=== PATIENT | male | born 1955 | race Caucasian/White ===

== ENCOUNTER → 2020-08-05 | Day surgery (SDC) | payer BC ==
--- NOTE | 2020-08-05 11:04 | RAD REPORT ---
EXAM DESCRIPTION: US - Guided FNA Non Breast - 08/05/2020 10:37 am CLINICAL HISTORY: E04.1 COMPARISON: Thyroid Para Parotid Gland dated 07/19/2020 TECHNIQUE: Patient presented for ultrasound-guided FNA of an approximately 4 centimeter solid nodule in the right lobe of the thyroid gland. The ultrasound FNA procedure, risks and alternatives were di scussed with the patient in detail. After answering all questions, oral and written consent were obta ined. Patient had no contraindicated allergy or medication history. Prior imaging demonstrated a large heterogeneous 4 centimeter nodule. That mass was again identified. Anterior right neck was prepped and draped in the usual sterile fashion. Skin and deeper tissues oneal n to the nodule were anesthetized with 1% lidocaine. Under direct sonographic visualization a 25 gaug e needle was advanced into the nodule. Multiple to and fro excursions of the needle tip made within t he nodule. A total of 5 FNA samplings of the mass performed. At the conclusion the procedure there wa s no evidence for hemorrhage within the mass or in the surrounding soft tissues. Hemostasis was obtai eloisa at the skin surface. A sterile bandage placed to the puncture site. Postprocedure care and precaution instructions were given to the patient. All collective material was given to pathology for assessment. IMPRESSION: Successful ultrasound-guided fine-needle aspiration of a 4 centimeter right thyroid nodu le.
== END ==
LOC: FNA 09:44
PROVIDERS: ATTEND Otolaryngology
PROC: 0GBH3ZX Excision of Right Thyroid Gland Lobe, Percutaneous Approach, Diagnostic (ICD-10-PCS; principal; 2020-08-05)
DX: E04.1 Nontoxic single thyroid nodule (principal)
CPT/HCPCS: 88162

== ENCOUNTER 2020-09-09 09:25 | Day surgery (SDC) | payer BC ==
[2020-09-08 12:53] LABS: Albumin 3.5 g/dL (3.4-5.0); Bilirubin Total 0.5 mg/dL (0.2-1.0); Potassium 4.4 mmol/L (3.5-5.1); Protein, Total 7.3 g/dL (6.4-8.2)
[2020-09-08 13:12] LABS: Absolute Lymphocytes (CBC) 2.6 K/uL (0.7-4.9); Basophils % 0.3 % (0-1.3); Lymphocytes % 25.3 % (15.3-44.8); MPV 7.4 fL (7.6-11.3); RBC Red Blood Cell Count 4.77 M/uL (4.33-5.43)
[2020-09-09] MEDS ORDERED: Ringers Lactate 1,000 ML IV ONE (09:57)
[2020-09-09] MEDS ORDERED: MIDAZOLAM HCL 2 MG/2 ML INJ ONE (10:03)
[2020-09-09] MEDS ORDERED: FENTANYL CITR 250 MCG/5 ML ONE (10:03)
[2020-09-09] MEDS ORDERED: ROCURONIUM 50 MG/5 ML VIAL IV ONE (10:03)
[2020-09-09] MEDS ORDERED: LIDOCAINE 2% MPF 5 ML VIAL ONE (10:03)
[2020-09-09] MEDS ORDERED: propofoL 200 MG/20 ML VIAL IV ONE (10:03)
[2020-09-09] MEDS ORDERED: dexAMETHasone 10 MG/ML VIAL ONE (10:03)
[2020-09-09] MEDS ORDERED: LIDOCAINE 1% W/EPI 1:100,000 MDV 20 ML VIAL ONE (11:34)
[2020-09-09] MEDS ORDERED: KETOROLAC 30 MG/ML INJ ONE (13:00)
[2020-09-09] MEDS ORDERED: EPHEDRINE SULF 50 MG/ML VIAL ONE (13:09)
--- NOTE | 2020-09-09 14:19 | P.BOP ---
Preoperative diagnosis: right thyroid neoplasm, uncertain behavior Postoperative diagnosis: same, favor follicular neoplasm Primary procedure: right hemithyroidectomy Survey Research Professor: Mary Tang Estimated blood loss: 100ml Specimen: right thyroid, frozen section Findings: soft nodule Anesthesia: General Complications: None Drain(s): YOAV drain Fluids & blood products: crystalloid 900ml Transferred to: Recovery Room Condition: Good
[2020-09-09 14:48] VITALS: O2SAT 95
[2020-09-09] MEDS ORDERED: ONDANSETRON 4 MG/2 ML VIAL ONE (14:53)
[2020-09-09 15:26] VITALS: TEMP 97.1
[2020-09-09 16:07] VITALS: BP 148/80
--- NOTE | 2020-09-10 01:53 | OP ---
Date of Procedure: 09/09/2020 Surgeon: Cristel Yoon MD Specialty Sales Consultant: Mary Tang. Preoperative Diagnosis: Right thyroid neoplasm of uncertain behavior. Postoperative Diagnosis: Right thyroid neoplasm of uncertain behavior, favor benign follicular lesion. Indication For Procedure: Mr. Shaikh is a 64-year-old, who presented with an incidental 4 cm right thyroid nodule on imaging of the chest. His ultrasound confirmed unilateral nodule and the patient's ultrasound-guided fine-needle aspiration biopsy was nondiagnostic. The patient also had a history of progressive dysphagia, which had been previously evaluated and inadequately treated with esophageal dilation. The risks, benefits, and alternatives to surgery were discussed with the patient. I recommended right hemithyroidectomy with frozen section and immediate completion thyroidectomy if the malignant process was noted. I discussed with the patient prior to surgery that thyroid frozen section can be limited in regard to diagnosis of follicular lesions and that change in diagnosis between the frozen section and permanent section was possible. The patient and his expressed understanding. Description Of Procedure: The patient was brought to the operating room. He was placed under general anesthesia via oral endotracheal tube. A shoulder roll was placed and the neck was extended. The planned incision site was injected with 4.5 mL of 1% lidocaine with epinephrine. The patient was noted to have a very short neck and the thyroid was difficult to palpate despite surgical positioning. A low collar incision was made through the skin and subcutaneous tissues. The platysma muscle was identified, and the inferior and superior subplatysmal flaps were elevated using Bovie electrocautery. The strap muscles were identified in the midline and divided using the LigaSure. The anterior aspect of the thyroid and thyroid capsule was then identified, and blunt dissection was carried out along the capsule using finger dissection and LigaSure to divide the soft tissue component. The inferior pole elevated easily from surrounding tissues. The thyroid was noted to extend deep into the neck and extended significantly superiorly. Large vessels on the surface of the thyroid were bleeding, but controlled with simple direct pressure and partially controlled with cautery. The superior pole was mobilized by division of soft tissue attachments including the vascular pedicle. Due to the superior extents, the very tip of the gland was difficult to dissect and small portion of thyroid tissue was ligated, to be addressed later if there was concern for thyroid malignancy, requiring total surgical thyroidectomy. The thyroid was then rolled medially and the deep soft tissue attachments were divided using the LigaSure. The isthmus was divided using the LigaSure and the specimen was rotated and divided from the tracheal wall. The specimen after removal was carefully examined and was soft with no obvious evidence of soft tissue invasion noted during dissection. There were no visible parathyroids on the excised specimen. The specimen was then sent to Pathology for frozen section analysis. The pathologist reported that the lesion was well-circumscribed, soft to palpation, did not appear to abut the capsule of the thyroid grossly and microscopically had abundant and cellular follicular cells with scant colloid, but only minimal areas of cellular atypia. Initial impression was for a follicular lesion without significant findings concerning for malignant process. The final diagnosis will be deferred to permanent pathology. The decision was made to forego completion thyroidectomy due to the nature of the intraoperative findings. The surgical bed was thoroughly irrigated with saline and there was no evidence of tracheal injury or bleeding during Valsalva. After suctioning, additional inspection revealed the surgical bed to be hemostatic. A 10-Algerian round YOAV drain was placed into the surgical bed and withdrawn through the right neck. The strap muscles were closed with a single Vicryl suture. The deep tissues of the platysma and subcutaneous fat were closed using 3-0 Vicryl. The skin was then closed with a 4-0 Monocryl subcuticular suture and Dermabond was applied to the incision. The patient was then returned to care of anesthesia for awakening and extubation in the operating room, which proceeded without difficulty. The patient was transferred to the recovery room in stable condition and will be discharged home later today and follow up with Dr. Yoon's office on Saturday for removal of the YOAV drain. SUSI/JEMIMA Voice ID: [id number] Report ID: [id number] [id number]
--- NOTE | 2020-09-10 20:06 | EKG ---
Test Date: 2020-09-08 Test Time: 12:01:25 Marine Technician: MADAI MEASUREMENT RESULTS: Intervals: Rate: 78 NC: 142 QRSD: 88 QT: 390 QTc: 444 [place]: P: 79 NC: 142 QRS: 59 T: 49 INTERPRETIVE STATEMENTS: Normal sinus rhythm Normal ECG No previous ECG available for comparison Electronically Signed On 09-10-20 20:02:58 FIELD MECHANIC by Delfino Garibay
== END 2020-09-09 16:00 | disposition home health service (06) ==
LOC: OR 09:25
PROVIDERS: ATTEND Otolaryngology
PROC: 0GBH0ZZ Excision of Right Thyroid Gland Lobe, Open Approach (ICD-10-PCS; principal; 2020-09-09 11:30)
DX: E04.1 Nontoxic single thyroid nodule (principal); Z20.828 Contact with and (suspected) exposure to other viral communicable diseases; Z87.891 Personal history of nicotine dependence; R06.83 Snoring; J44.9 Chronic obstructive pulmonary disease, unspecified; I10 Essential (primary) hypertension; K21.9 Gastro-esophageal reflux disease without esophagitis; Z85.828 Personal history of other malignant neoplasm of skin
CPT/HCPCS: 93005; 85025; 36415; 88331; 88332 ×2; 88307; 83970; 80053; 82306; 60210; U0002; J2704; J3010; J1100; J7120; J2405; 88305; 88333; J2250

== ENCOUNTER 2024-06-30 14:08 | Observation (INO) | payer OTHER ==
[2024-06-30] MEDS ORDERED: HYDROMORPHONE HCL 1 MG/ML INJ IV PRN (15:14)
[2024-06-30] MEDS ORDERED: POLYETHYL GLY 3350 17 GM/DOSE PO PRN (15:15)
[2024-06-30] MEDS ORDERED: ONDANSETRON 4 MG/2 ML VIAL IV PRN (15:16)
[2024-06-30] MEDS ORDERED: LOPERAMIDE HCL 2 MG CAPSULE PO PRN (15:17)
[2024-06-30] MEDS ORDERED: ACETAMINOPHEN 325 MG TABLET PO PRN (15:17)
[2024-06-30 15:37] LABS: Absolute Basophils 0.1 K/uL (0-0.5); Absolute Eosinophils 0.3 K/uL (0-0.5); Absolute Lymphocytes (CBC) 2.1 K/uL (0.7-4.9); Absolute Neutrophil 6.8 K/uL (1.8-8.0); Basophils % 0.5 % (0-1.3); Eosinophils % 3.1 % (0-4.4); Hematocrit 43.3 % (39.6-49.0); Hemoglobin 14.7 g/dL (13.6-17.9); Lymphocytes % 20.3 % (15.3-44.8); MCH 29.8 pg (27.0-35.0); MCV 87.6 fL (80-100); MPV 7.2 fL (7.6-11.3); Monocytes % 9.4 % (3.3-12.3); Neutrophils % 66.7 % (41.7-73.7); Platelets 289 thou/uL (152-406); RBC Red Blood Cell Count 4.94 M/uL (4.33-5.43); Red Cell Distribution Width 14.2 % (12.1-15.2)
[2024-06-30 15:41] LABS: PT Prothrombin Time 11.1 SECONDS (9.4-12.5); PTT, Activated Partial Thromb 32.9 SECONDS (24.3-36.9); Protime INR 0.99
[2024-06-30 16:35] LABS: ALT/SGPT 22 U/L (16-61); AST/SGOT 11 U/L (15-37); Albumin 3.3 g/dL (3.4-5.0); Albumin/Globulin Ratio 0.9 (1.1-1.8); Alkaline Phosphatase 81 U/L (45-117); Bilirubin Total 0.5 mg/dL (0.2-1.0); Globulin 3.6 g/dL (2.3-3.5); Magnesium 2.1 mg/dL (1.6-2.4); Phosphorus 3.5 mg/dL (2.5-4.9); Protein, Total 6.9 g/dL (6.4-8.2)
[2024-06-30 16:37] LABS: Bilirubin Direct < 0.2 mg/dL (0-0.2); Bilirubin Indirect, Calculated 0.3 mg/dL (0.2-0.8)
--- NOTE | 2024-06-30 16:59 | RAD REPORT ---
EXAMINATION: CT ABDOMEN AND PELVIS WITHOUT CONTRAST CLINICAL INDICATION: Male, 68 years old. abdominal pain [facility] MAIN abdominal pain TECHNIQUE: CT abdomen and pelvis was performed, without IV contrast, as per department protocol. Axia l, sagittal and coronal reconstructions were obtained. One or more of the following dose reduction techniques were used: Automated exposure control, adjustment of the mA and kV according to the patien t size, and iterative reconstruction. Unless otherwise specified, incidental findings do not require dedicated imaging follow-up. COMPARISON: No prior exam. FINDINGS: The lack of intravenous contrast limits the sensitivity of this exam for evaluation of solid visceral organs, vascular structures, and retroperitoneum. LOWER CHEST: The visualized lung bases are clear. LIVER: Normal in size and contour. No focal lesion. BILIARY SYSTEM: No suspicious abnormalities. SPLEEN: Normal size. No focal lesion. PANCREAS: No mass, ductal dilation, or estefani-pancreatic fluid. ADRENALS: Normal; no mass. KIDNEYS AND URETERS: Normal size and contour. No hydronephrosis. URINARY BLADDER: Normal contour. GASTROINTESTINAL TRACT: No evidence of bowel obstruction, significant free fluid, free air or abscess . Mild scattered diverticulosis throughout the colon. APPENDIX: Normal appendix. LYMPH NODES: No lymphadenopathy. MUSCULOSKELETAL: No acute or suspicious osseous abnormality. ADDITIONAL FINDINGS: Small fat-containing umbilical hernia, with pronounced fat stranding within the hernia content. The hernia measures 1.2 cm in diameter at the neck. IMPRESSION: Small fat-containing umbilical hernia, likely inflamed. No other acute intra-abdominal process. Mild colonic diverticulosis.
[2024-06-30] MEDS: ENOXAPARIN 40 MG/0.4 ML SQ SCH (17:46)
[2024-06-30] MEDS: NACHLORIDE 0.45% 1,000 ML IV SCH (17:47)
[2024-06-30] MEDS: CEFOXITIN 1 GM in NA CHLORIDE 0.9% 50 ML IVPB SCH (17:47)
--- NOTE | 2024-06-30 17:59 | RAD REPORT ---
EXAMINATION: ONE VIEW CHEST XR CLINICAL INDICATION: Male, 68 years old. [facility] MAIN new admit, HERNIA TECHNIQUE: Frontal chest projection is submitted. Examination is limited by patient positioning and t echnique. COMPARISON: 01/16/2023 FINDINGS: Lordotic positioning somewhat limits evaluation. The lungs are well inflated and clear apart from sta ble left basilar atelectasis. No pneumothorax or sizable effusion. The heart is normal in size. IMPRESSION: No acute intrathoracic abnormalities.
[2024-06-30] MEDS ORDERED: DIPHENHYDRAMINE 25 MG TAB/CAP PO PRN (21:00)
[2024-07-01 03:12] LABS: Specific Gravity 1.007 (1.005-1.030); Urine Bilirubin NEGATIVE (Negative); Urine Blood Negative (Negative); Urine Clarity Clear (Clear); Urine Color Colorless (Yellow); Urine Glucose NEGATIVE (Negative); Urine Ketones NEGATIVE (Negative); Urine Microscopic Reflex YN NO UMIC; Urine Nitrite NEGATIVE (Negative); Urine Protein NEGATIVE (Negative); Urine Urobilinogen Normal (Normal); Urine pH 6.5 (5.0-7.0)
[2024-07-01 06:00] LABS: Absolute Basophils 0.1 K/uL (0-0.5); Absolute Eosinophils 0.5 K/uL (0-0.5); Absolute Neutrophil 4.8 K/uL (1.8-8.0); Basophils % 0.6 % (0-1.3); Eosinophils % 5.7 % (0-4.4); Hematocrit 40.5 % (39.6-49.0); Hemoglobin 13.6 g/dL (13.6-17.9); Lymphocytes % 24.3 % (15.3-44.8); MCH 29.6 pg (27.0-35.0); MCHC 33.6 g/dL (32.0-36.0); MCV 88.2 fL (80-100); MPV 7.4 fL (7.6-11.3); Monocytes % 11.6 % (3.3-12.3); Neutrophils % 57.8 % (41.7-73.7); Nucleated Red Blood Cells % 0.1 % (0-0); Platelets 295 thou/uL (152-406); RBC Red Blood Cell Count 4.59 M/uL (4.33-5.43); Red Cell Distribution Width 14.5 % (12.1-15.2)
[2024-07-01 06:27] LABS: Anion Gap 7.4 mEq/L (5.0-15.0); Magnesium 2.3 mg/dL (1.6-2.4); Potassium 4.4 mEq/L (3.5-5.1)
[2024-07-01] MEDS: VILANTER IH SCH (08:27)
[2024-07-01] MEDS: UMECLIDIN IH SCH (08:27)
[2024-07-01] MEDS: FLUTICASONE IH SCH (08:27)
[2024-07-01] MEDS ORDERED: dexAMETHasone 10 MG/ML VIAL ONE (10:59)
[2024-07-01] MEDS ORDERED: FENTANYL CITR 100 MCG/2 ML ONE (10:59)
[2024-07-01] MEDS ORDERED: KETOROLAC 30 MG/ML INJ ONE (10:59)
[2024-07-01] MEDS ORDERED: ONDANSETRON 4 MG/2 ML VIAL ONE ×2 (10:59→12:41)
[2024-07-01] MEDS ORDERED: ROCURONIUM 50 MG/5 ML VIAL IV ONE (10:59)
[2024-07-01] MEDS ORDERED: propofoL 200 MG/20 ML VIAL IV ONE (10:59)
[2024-07-01] MEDS ORDERED: MIDAZOLAM HCL 2 MG/2 ML INJ ONE (10:59)
[2024-07-01] MEDS ORDERED: LIDOCAINE 2% MPF 5 ML VIAL ONE (10:59)
[2024-07-01] MEDS ORDERED: BUPIVACAINE 0.5% PF 10 ML VIAL ONE (11:08)
[2024-07-01] MEDS ORDERED: Ringers Lactate 1,000 ML IV ONE (11:24)
[2024-07-01] MEDS ORDERED: SUGAMMADEX SODIUM 200 MG/2 ML VIAL IV ONE (11:41)
--- NOTE | 2024-07-01 12:03 | P.BOP ---
Preoperative diagnosis: incarcerated umbilical hernia Postoperative diagnosis: same Primary procedure: Open repair of incarcerated umbilical hernia Estimated blood loss: <10cc Specimen: sac and content Findings: strangulated omentum Anesthesia: General Complications: None Transferred to: Recovery Room Condition: Good
--- NOTE | 2024-07-01 12:08 | P.DS ---
Admission Date: 06/30/24 Discharge Date: 07/01/24 Disposition: ROUTINE DISCHARGE Discharge Condition: GOOD Brief History of Present Illness: INCARCERATED UMB HERNIA. PATIENT DID WELL WITH SURGERY. DR. Joselito HELM CALLED AND SAID HE WAS STABLE TO GO HOME. I AM OKAY WITH IT AND HE WILL WRITE ORDERS. Vital Signs/Physical Exam: Temp Pulse Resp BP Pulse Ox 97.5 F 76 18 126/76 94 07/01/24 08:00 07/01/24 08:00 07/01/24 08:00 07/01/24 08:00 07/01/24 08:00 Laboratory Data at Discharge: WBC 8.40 thou/uL (4.3-10.9) 07/01/24 05:18 Hgb 13.6 g/dL (13.6-17.9) 07/01/24 05:18 Hct 40.5 % (39.6-49.0) 07/01/24 05:18 Plt Count 295 thou/uL (152-406) 07/01/24 05:18 PT 11.1 SECONDS (9.4-12.5) 06/30/24 15:09 INR 0.99 06/30/24 15:09 APTT 32.9 SECONDS (24.3-36.9) 06/30/24 15:09 Sodium 139 mEq/L (136-145) 07/01/24 05:18 Potassium 4.4 mEq/L (3.5-5.1) 07/01/24 05:18 BUN 22 mg/dL (7-18) H 07/01/24 05:18 Creatinine 1.20 mg/dL (0.70-1.30) 07/01/24 05:18 Glucose 110 mg/dL (74-106) H 07/01/24 05:18 Phosphorus 3.5 mg/dL (2.5-4.9) 06/30/24 15:09 Magnesium 2.3 mg/dL (1.6-2.4) 07/01/24 05:18 Total Bilirubin 0.5 mg/dL (0.2-1.0) 06/30/24 15:09 AST 11 U/L (15-37) L 06/30/24 15:09 ALT 22 U/L (16-61) 06/30/24 15:09 Alkaline Phosphatase 81 U/L (45-117) 06/30/24 15:09 Home Medications: Fluticasone/Umeclidin/Vilanter [Trelegy Ellipta 100-62.5-25] 1 each IH DAILY 09/08/20 lisinopriL [Lisinopril] 10 mg PO DAILY 09/08/20 Aspirin [Adult Low Dose Aspirin EC] 81 mg PO DAILY 01/16/23 Ipratropium [place] [Atrovent Hfa] 2 puff IH PRN PRN 06/30/24 Physician Discharge Instructions: Keep surgical area clean and dry for 48h then may remove outer dressing but keep sterile strips intact. Replace umbilical dressing including cottpn ball daily after 48h Diet: AHA Activity: No lifting more than 10 lbs Followup: Moustapha Campos MD [Primary Care Provider] - Natan Helm MD [ACTIVE - CAN ADMIT] - 1 Week
[2024-07-01] MEDS ORDERED: HYDROCODONE/APAP 5/325 MG TAB PO PRN (12:16)
[2024-07-01 12:52] VITALS: O2SAT 94
[2024-07-01 15:28] VITALS: BMI 34.7
--- NOTE | 2024-07-01 15:45 | CON ---
Date of Consultation: 07/01/2024 Reason For Service: Incarcerated umbilical hernia. Indications: This is a case of a 68-year-old patient, admitted per primary doctor last night with ab dominal pain, found the skin to be cyanotic, had a CT scan showing incarcerated umbilical hernia. Th e patient was admitted and a surgical consult was done for repair. He denies any prior episode. Den ies any lifting anything heavy. Denies any dysuria, hematochezia, melena. Denies any recent traveli ng out of the country. Denies any family member sick at home. Past Medical History: Hypertension. Allergies: SHELLFISH. Social History: He does not smoke. He does not drink alcohol. Family History: Noncontributory. Medications: Reviewed. Review of Systems: See above. No nausea or vomiting, although patient has abdominal pain. Physical Examination: Vital Signs: Reviewed. The patient is awake, alert. Pupils are equal and reactive. Anicteric. Neck: Supple. Chest: Clear. Heart: S1, S2. Abdomen: Soft and depressible. There is a periumbilical tenderness with an ischemic changes over th e skin area itself. Erythema present with swelling over that region. No fluctuance seen, no crepitu s. At least I could not see any bowel sounds on the hernia, although the rest of the abdomen shows b owel sounds normal. Extremities: Good capillary refill. Rectal: Deferred. Laboratory Data: Blood work shows WBC count of 10 with hemoglobin of 14. INR is 0.99. Potassium is 4.4. CAT scan of the abdomen and pelvis interpreted by Dr. Alvares as an incarcerated with possible omentum umbilical hernia with fat stranding present. Assessment: A 68-year-old patient with incarcerated umbilical hernia. The benefits, alternatives, a nd risks of repair fully explained, which include, but not limited to infection, bleeding, damage to adjacent structures, anesthesia complication, nonhealing wound, [place], even . He also understands this may not relieve the symptoms. He might need more than one surgical intervention. He understood . The patient was booked emergently in OR. YA/MODL Voice ID: [id number] Report ID: [id number]
[2024-07-01 17:04] VITALS: BP 138/72; TEMP 97.6
--- NOTE | 2024-07-02 12:13 | EKG ---
Test Date: 2024-06-30 Test Time: 19:21:24 Hub Associate: CARRINGTON MEASUREMENT RESULTS: Intervals: Rate: 86 VT: 104 QRSD: 124 QT: 416 QTc: 497 [place]: P: 56 VT: 104 QRS: 28 T: 58 INTERPRETIVE STATEMENTS: Sinus rhythm with short VT Right bundle branch block Abnormal ECG Compared to ECG 06/30/2024 18:49:19 Atrial premature complex(es) no longer present Electronically Signed On 07-02-24 12:09:33 CDT by Mayo Coffey
--- NOTE | 2024-07-02 12:13 | EKG ---
Test Date: 2024-06-30 Test Time: 18:49:19 Consumer Loan Manager: CARRINGTON MEASUREMENT RESULTS: Intervals: Rate: 80 DC: 100 QRSD: 122 QT: 404 QTc: 465 [place]: P: 96 DC: 100 QRS: -1 T: 27 INTERPRETIVE STATEMENTS: Sinus rhythm with short DC with premature supraventricular complexes Right bundle branch block Abnormal ECG Compared to ECG 01/16/2023 07:15:04 Atrial premature complex(es) now present Short DC interval now present Right bundle-branch block now present Electronically Signed On 07-02-24 12:09:39 CDT by Mayo Coffey
[2024-07-04 05:07] LABS: 1,25 Dihydroxy Vitamin D3 11 pg/mL; Vitamin D 1,25-Dihydroxy Total 11 pg/mL (18-72); Vitamin D,1,25-OH2, D2 <8 pg/mL
== END 2024-07-01 18:36 | disposition home or self-care (01) ==
LOC: 2ND 14:09
PROVIDERS: ADMIT Internal Medicine; ATTEND Internal Medicine
PROC: 0WQF0ZZ Repair Abdominal Wall, Open Approach (ICD-10-PCS; principal; 2024-06-30)
DX: K42.0 Umbilical hernia with obstruction, without gangrene (principal); I10 Essential (primary) hypertension; J44.9 Chronic obstructive pulmonary disease, unspecified; R73.03 Prediabetes
CPT/HCPCS: 36415; 71045; 74176; 80048; 80076; 81003; 82607; 82652; 83735; 84100; 84443; 85025; 85610; 85730; 88302; 93005; G0378; G0379; J0694; J1100; J1650; J2001; J2250; J2405; J2704; J3010; J7120